=== PATIENT | male | born 1960 | race Caucasian/White ===

== ENCOUNTER 2024-06-30 09:44 | Outpatient (REF) | payer OTHER, SELFPAY ==
--- OUTSIDE RECORDS SUMMARY | 2024-06-30 11:03 | XMS_ITS | Clinical Summary ---
Author Organization [facility] Address [address] [place] [address] Care Team Providers Care Parts Identifier Name Role Phone Dodie Bryan MD Primary Care Provider [phone] Source Comments PLEASE NOTE, if this patient is a minor, it may be UNLAWFUL to discuss sensitive information that is contained in these records (such as FAMILY PLANNING, MENTAL HEALTH or SUBSTANCE ABUSE) with the minor patient's parent or other person without the patient's specific authorization.[facility] Allergies No known active allergies Medications alcohol swabsIndications: Type 2 diabetes mellitus without complication, with long-term current use of insulin ([facility]) Use daily for checking blood sugar 100 Each 5 01/18/20 16 Active blood sugar diagnostic stripsIndications :Type 2 diabetes mellitus without complication, without long-term current use of insulin ([facility]) once daily use once daily to check blood sugar. Presto brand. Diagnosis type 2 diabetes.E11.9 100 Each 5 12/18/19 19 Active glipiZIDE (GLUCOTROL) 5 mg tabletIndications :Type 2 diabetes mellitus without complication, without long-term current use of insulin ([facility]) Take 1 Tab by mouth 2 (two) times daily 180 Tab 1 12/18/19 19 Active peg 400-hypromellose- glycerin 1-0.2-0.2 % dropIndications:D ry eyes Place 1-2 Drops into both eyes 2 (two) times daily as needed (dry eye) 1 mL 5 04/30/19 20 Active atorvastatin (LIPITOR) 40 mg tabletIndications :Hypercholesterol emia Take 1 Tab by mouth once daily 90 Tab 1 04/30/19 20 Active lisinopriL 40 mg tabletIndications :Essential (primary) hypertension Take 1 Tab by mouth once daily 90 Tab 1 04/30/19 20 Active gabapentin (NEURONTIN) 300 mg capsuleIndication s:Cervical radiculitis Take 1 Cap by mouth 2 (two) times daily 60 Cap 4 04/30/19 20 Active hydroCHLOROthiazi de (MICROZIDE) 12.5 mg capsuleIndication s:Essential (primary) hypertension Take 1 Cap by mouth once daily 90 Cap 1 06/02/19 20 Active metFORMIN (GLUCOPHAGE) 1,000 mg tabletIndications :type 2 diabetes mellitus Take 1 Tab by mouth 2 (two) times daily with a meal Indications: type 2 diabetes mellitus 180 Tab 3 07/21/19 20 Active FLUoxetine (PROZAC) 40 mg capsuleIndication s:Generalized anxiety disorder,Recurren t major depressive disorder, in partial remission ([facility]) Take 2 Caps by mouth once daily (malawian instructions please) 60 Cap 2 08/04/19 20 Active dextroamphetamine -amphetamine (ADDERALL XR) 20 mg 24 hr capsuleIndication s:Attention deficit hyperactivity disorder (ADHD), combined type Please take 2 tablets by mouth twice a day. 120 Cap 08/04/19 20 Active Active Problems Patient Care Coordination No te Formatting of this note migh t be different from the original. [facility] Problem Noted Date Diagnosed Date Swelling of both ankles 08/04/2019 Assessment & Plan (08/04/2019 2:19 PM EDT): Presenting with b/l swelling of ankles, no red flags, no pain. Etiology unclear, reassured Jamey and reviewed warning signs to return to care, offered in-person assessment but since they are improved at the moment he prefers to call back and schedule if they worsen again. Follow up in October for routine DM visit. Multiple lung nodules on CT 12/18/2018 Overview (08/04/2019): 06/2017: Lung-RADS Category: 2 S (Benign appearance or behavior) The lung nodules described above have a very low likelihood of becoming a clinically active cancer, due to their size or lack of growth. The probability of malignancy is less than 1%. 3.8 cm round hypodense lesion at the superior pole the right kidney which is incompletely characterized. Renal ultrasound is recommended for further evaluation. Done, simple cyst. Coronary artery calcifications. RECOMMENDATION: *Nodule follow up with low dose Lung Screening CT in 12 months is recommended. *Renal ultrasound. Assessment & Plan (08/04/2019 2:20 PM EDT): CT order had been placed by Jud Hunter in February but not completed. Reordered today. Colon cancer screening 12/05/2018 Overview (12/05/2018): 11/20/18: FIT submitted by pt but inadequate sample, see TE (tel encounter) 12/05/18 RN team to reach out the the pt to redo the test and come in for instructions. 09/2017: FIT neg Assessment & Plan (07/13/2019 2:31 PM EDT): Pt due for colon cancer screening; Prefers Fit over colonoscopy Cervical radiculitis 08/31/2018 Overview (12/05/2018): 12/05/18: refilled Gabapentin 08/19/18: R shoulder has bothered him for years. Gabapentin helped in past. Today says: able to raise both arms, put R arm behind back. But right upper back/chest when rotates head to right. Can feel tingling, numbness down R arm. Trying not to use his R arm. On exam, has + spurling on Right Printed & reviewed [facility] Info & stretches for cervical radiculopathy, rx'd gabapentin. Consider PT in future if Pt agrees, or spine ortho consult Assessment & Plan (07/13/2019 2:24 PM EDT): Requesting refill of gabapentin for cervical radiculitis; Will provide rx [place] cardiac risk >20% in next 10 years Overview (12/08/2017): 11/27/17: Extensive discussion on The 10-year ASCVD risk score (Memo JOHNSON Jr., et al., 2013) is: 24.5% and ways to reduce risk, incl: smoking cessation, incr anti-hypertensive med dose, atorva incr, weight med risks & benefits potentially. Not ready to quit smoking yet. > pt agrees to add hctz 12.5mg daily. F/u 1-2 weeks for rpt BP, BMP Renal cyst, right 08/12/2017 Overview (05/15/2018): 06/04/17 CT: Incidentally found 3.8 cm round hypodense lesion at the superior pole the right kidney which is incompletely characterized. Renal ultrasound is recommended. - ordered 05/2018: kidney ultrasound showed a simple renal cyst. No further follow-up is needed - these are very common. They very rarely cause problems like pain or infection. Routine health maintenance 03/03/2017 Overview (03/18/2018): Annual CPex: Colon Cancer Screening: prefers FIT, declines c-scope. Ordered 09/10/17 after pt put if off for a long time. Eye exam: 12/26/16 no diabetic retinopathy or CSME OU - f/u 1 year. Dentist: Sees an outside dentist. Last visit 2 year ago. Has all prosthetic teeth. STD screening: Unknown. Same partner x20 years (his ex-), they are but still in contact, he does not think she has other partners, she wants to be back with him. Lung cancer screening due to smokin06/04/17: CT Lung cancer screening: *Nodule follow up with low dose Lung Screening CT in 12 months is recommended. (less than 1% chance malignant) Cigarette nicotine dependence without complicati on 11/12/2016 Overview (06/29/2018): 10/31/16: Smoking: still 10 cigs a day. > declines smoking cessation counseling program, nicotine replacement. > smoking for 35 years, 1 ppd until now half ppd The 10-year ASCVD risk score (Memo DC Jr., et al., 2013) is: 26.3% > if stops smoking, 17.8%! 06/04/17: CT Lung cancer screening: *Nodule follow up with low dose Lung Screening CT in 12 months is recommended. (less than 1% chance malignant) 11/27/17, 03/18/18: Not ready to quit smoking yet, in future consider quitworks/nicotine inhaler 06/17/18: Due for CT lung cancer screening - rolls his own cigs, smokes about 15 a day? - is interested in trying gum. Encouraged him to use patch too. Discussed switch to vape, QUITworks counseling, nicotine inhaler. - knows of support groups OCD (obsessive compulsive disorder) 02/08/2016 Generalized anxiety disorder 07/19/2015 Major depressive disorder, r ecurrent, in full remission ([facility] V[facility]) 07/12/2015 Overview (04/30/2019): 04/30/19 Depression and ADHD Taking prozac 60mg and adderall XR 20mg daily Following with June and Matthieu in @ [facility] Assessment & Plan (07/13/2019 2:29 PM EDT): Psychological condition is stable with prozac 60 mg and with . Plan: Continue current treatment regimen. Psychological condition will be reassessed at the next regular appointment. Attention-deficit hyperactivity disorder 014 Overview (09/15/2017): 09/10/17: Pt attributes his mild tachycardia at OVs to taking his adderall just before coming to appts Assessment & Plan (12/08/2018 6:29 AM EDT): In d/w psychiatry, he may go to higher dose of Adderrall 80mg po qd ER once BP is well-controlled Frequency of micturition 05/29/2010 Overview (03/03/2017): In chart since 05/29/10. 02/20/17: Says does not drink much water because prostate problems. Does not remember if tamsulosin helped. Says had LUIS EDUARDO. But this clinician unable to find LUIS EDUARDO in chart. Per chart: 04/13/15: freq urination declines prostate exam rx tamsulosin Type 2 diabetes mellitus without complications 1 04/17/2008 Overview (06/29/2018): - Med regimen: metformin 1g BID, glipizide 5g bid 06/17/18: Check A1c Had an episode of low BG in 40s, symptomatic. Pt declines decreasing his glipizide at this time - encouraged him to take only HALF a tab BID. Has a pill cutter at home. - Last A1c: 6's - Fasting BGs: - S/sx hypoglycemia or hyperglycemia: - Urine microalb/cr: 7 on 10/31/16 - Monofilament foot sensation: 5/5 02/20/17 - Eye exam: 12/26/16 no diabetic retinopathy or CSME OU - f/u 1 year. - Seen by customer solutions specialist: - ACEI or ARB: lisinopril 40 - mod-high Statin: atorva 40 Assessment & Plan (07/13/2019 2:28 PM EDT): Diabetes is stable w metformin 1g BID and glipizide 5 mg BID. Plan: Pt not due for HgbA1c til July. Will order yearly DM labs including Microalbumin/Cr ratio, Cr, and lipid panel Diabetes will be reassessed in 1 month. Assessment & Plan (06/24/2019 6:41 PM EDT): Diabetes is well managed at this time. Plan: Continue current treatment regimen. Diabetes will be reassessed 2 months, beginning of August when due for next a1c. May be able to do in person but likely will not . Hypercholesterolemia 11/11/2007 Assessment & Plan (07/13/2019 2:30 PM EDT): Lipid abnormalities are stable on atorvastatin 40 mg and will continue given elevated ASCVD risk The 10-year ASCVD risk score (Aurora ELIZABETH Serrano., et al., 2013) is: 28.3% Plan: Pharmacotherapy as ordered and encourage smoking cessation. Lipids will be reassessed in 3 months. Essential (primary) hypertension 04/03/2006 Overview (04/30/2019): Takes lisinopril 40mg 11/27/17: added hctz 12.5 mg to meet goal BP < 130/80 (pt with DM, The 10-year ASCVD risk score (Memo JOHNSON Jr., et al., 2013) is: 24.5% ) > check BP, BMP in 1-2 weeks 03/18/18: BP well controlled. Pt would like home BP cuff. To send rx. 08/19/18: Continue meds. Encouraged smoking cessation. 04/30/19 well controlled, cont Assessment & Plan (06/24/2019 12:21 PM EDT): Hypertension is well managed at this time. Plan: Continue current treatment regimen, Dietary sodium restriction, Regular aerobic exercise, Stop smoking and though he declines smoking cessation at this time Blood pressure will be reassessed at the next regular appointment. Assessment & Plan (07/13/2019 2:24 PM EDT): Hypertension is well controlled on lisinopril 40 mg and HCTZ 12.5 mg Plan: Continue current treatment regimen and Regular aerobic exercise; encourage smoking cessation; Lipid panel check Blood pressure will be reassessed at the next regular appointment. Assessment & Plan (11/11/2018 4:18 PM EDT): BP still above goal of <130/80 in setting DMII, enc tob cessation Med adherence: Appear to not been taking HCTZ and he is unsure he has taken it at all since rx'd over the past year He confirms taking lisinopril 40mg po qd I've printed rx for HCTZ 12.5mg po qd and given it to the patient. Lab Results Component Value Date NA 140 02/05/2018 K 5.2 02/05/2018 CALCIUM 9.4 02/05/2018 BUN 21 02/05/2018 BUNCREAT NOT APPLICABLE 02/05/2018 CREATININE 0.75 02/05/2018 GLUCOSE 72 08/19/2018 EGFR 100 02/05/2018 EGFRAFAM 116 02/05/2018 Resolved Problems Problem Noted Date Diagnosed Date Resolved Date Dermatofibroma 09/15/2017 06/24/2019 Overview (03/18/2018): 09/10/17: Ulnar side of L wrist: 0.7mm diameter dermatofibroma. Pt aware does not need to remove lesion, will think about it. Reviewed procedure for ellipitical excision Reviewed potential risks and benefits. can be punch biopsy Persistent cough for 3 weeks or longer 08/12/2017 09/10/2017 Overview (09/15/2017): 08/05/17: for 2 months (started after recent lung CT for cancer screening in smoker) Throat clearing during OV Cobblestoning in nose - etiology: Allergies? Copd? Lisinopril? - Plan: > check cbc diff, quant gold (pt not at increased risk: from MD) > trial flonase, f/u 2 weeks 09/10/17: Cough resolved. Pt not sure if flonase was what helped. Screening examination for venereal disease 11/12/2016 12/18/2018 Overview (11/12/2016): 10/31/16: To check in [facility] for prior labs (e.g. HCV, HIV) > pt states he had this in past, says has no risk factors in past 10 years. > last sexual activity: same partner x40 years, last time with that partner 2-3 months ago. No penile discharge, or rash. No hx IVDU, blood transfusions, tattoos. Had hernia surgery. ADD (attention deficit disorder) 02/08/2016 11/12/2016 Restless legs syndrome 01/18/201606/23 Attention-deficit hyperactiv ity disorder, predominantly hyperactive type 08/09/2015 6 Depression, major, recurrent, moderate 07/19/2015 11/12/2016 Overview (09/21/2015): Sees Dr. Cali Medley 04/13/2015 06/24/2019 Personal history of problems 01/06/2014 09/21/2015 Mood disorder ([facility] V[facility]) 07/23/2013 09/21/2015 Dizziness and giddiness 08/20/201109/02 Tobacco use 01/03/2011 11/12/2016 Anxiety disorder 02/14/2009 09/21/2015 Immunizations Immunization Administration Dates Next Due Flu, Preservative Free 12/11/2012 Flu, Recombinant, 18y+, Flublok 12/17/2018,03/18 INFLUENZA, SEASONAL, INJECTABLE 12/25/2016,01/02,11/03/2015 INFLUENZA, SEASONAL, INJECTA BLE, PRESERVATIVE FREE 11/09/2015 INFLUENZA, UNSPECIFIED 12/22/2014,2013,12/02/2012,11/11,01/02/2011,12/01/2009 PNEUMOCOCCAL POLYSACCHARIDE PPV23 09/11/2010 TDAP 09/11/2010 Family History Medical History Relation Name Comments Dementia Mother Diabetes Mother Cancer Neg Heart Problems Neg Relation Name Status Comments Mother Social History Tobacco Use Types Packs/Day Years Used Date Smoking Tobacco: Every Day Cigarettes 0.8 45 Smokeless Tobacco: Current Tobacco Cessation:Counseling Given: Yes Alcohol Use Standard Drinks/Week Comments No 0 (1 standard drink = 0.6 oz pur e alcohol) Social Connections Answer Date Recorded Connectedness 0 11/09/2023 Financial Resource Strain Answer Date R ecorded Financial Resource Strain 0 2018 Stress Answer Date Recorded Stress 0 10/22/2018 Physical Activity Answer Date Recorded Physical Activity 0 10/22/2018 Food Insecurity Answer Date Recorded Food 0 12/10/2018 Transportation Needs Answer Date Record ed Transportation 0 12/10/2018 Housing Stability Answer Date Recorded Housing 0 12/10/2018 Safety and Environment Answer Date Jose rded Safety 0 10/22/2018 Utilities Answer Date Recorded Utilities 0 12/10/2018 Employment Answer Date Recorded Stress 0 12/10/2018 Sex and Gender Information Value Date Recorded Sex Assigned at Not on file Legal Sex Male 11:26 PM PDT Gender Identity Male 02/14/2019 7:17 AM PST Sexual Orientation Choose not to disclose 2018 11:00 AM PDT Last Filed Vital Signs Vital Sign Reading Time Taken Comments Blood Pressure 122/70 04/30/2019 2:17 PM EST Pulse 100 04/30/2019 2:17 PM EST Temperature 36.7 ??C (98 ??F) 04/30/2019 2:17 PM EST Respiratory Rate 20 10/31/2016 2:48 PM EDT Oxygen Saturation 100% 04/30/2019 2:17 PM EST Inhaled Oxygen Concentration - - Weight 78 kg (172 lb) 04/30/2019 2:17 PM EST Height 176.5 cm (5' 9.49 ) 11/27/2017 4:19 PM ED T Body Mass Index 25.04 11/27/2017 4:19 PM EDT Plan of Treatment Not on file Insurance [facility] Member Subscriber Plan / Payer (Ef fective 2015-Present) Name:Jamey Macedo Relation to Subscriber:Self Name:Jamey Macedo Payer ID:[id number] Group ID:Not on file Type:Medicare Address: [address] [place] [address] [id number] Care Teams Parts Identifier Relationship Specialty Start Date End Date Dodie Bryan MD PCP - General 02/09/19
--- OUTSIDE RECORDS SUMMARY | 2024-06-30 11:03 | XMS_ITS | Data Portability ---
Author Organization [place] - [employer] [facility], [place] - Home/Virtual/Phone Address [address] [place] [address] [phone] [place] [address] Assessment Encounter Date Assessment Date Assessment LastModified by Organization Details LastModified Time 05/24/2023 05/24/2023 Goals and Actions from this Visit My Goals and To Do List: What [facility] Will Do: Medication(s) Started or Changed today: Medication(s) STOPPED today: Caregiver Instructions: [email or web address] Not available 05/24/2023 13:25:56 Plan of Treatment Reminders Order Date Submit Date Provider Last Modified By Organization Details Last Modified Time Details Appointments None record ed. Lab None record ed. Referral None record ed. Procedures None record ed. Surgeries None record ed. Imaging None record ed. Medication Orders None record ed. Patient TargetsNo targets recorded. Patient Instructions Encounter Date Encounter Id Patient Instructions Last Modified By Organization Details Last Modified Time 05/24/2023 [id number] Care Plan: Members primary concern: My primary concern: Focus to keep member in community: Strengths: Barriers: Team point of contact: Tasked , RN, to follow up within 2 weeks to create/review Care Plan with member Member was told that for true emergencies - they should call 911 without hesitation. They were also informed that [facility] has a provider rehabilitation construction specialist for any urgent medical issues or for advice. Member was given [facility]'s access number - . [email or web address] Not available 05/24/2023 13:25:57 Enter the [facility] t CPT codes on the billing tab: Provider Visit Codes - In-person and Video: {{41475 = New, MDM Straightforward and/or 15-29 minutes 81850 = New, MDM Low and/or 30-44 minutes 22686 = New, MDM Moderate and/or 45-59 minutes 49636 = New, MDM High and/or 60-74 minutes 84442 = ALL RN visits 04943 = Est, MDM Straightforward and/or 10 - 19 minutes 44454 = Est, MDM Low and/or 20 - 29 minutes 94665 = Est, MDM Moderate and/or 30 - 39 minutes* 33068 = Est, MDM High and/or 40+ minutes Non-billabl e: 98768}} PCP Annual Wellness Visit Codes - In-Person and Video: (req Z00.xxx Dx) {{MediCARE, Initial = G0438 MediCARE, Subsequent = G0439 MedicAID, New, 19-39 yrs = 26850 MedicAID, New, 40-64 yrs = 27292 MedicAID, New, 65+ yrs = 41780 MedicAID, Established, 19-39 yrs = 52064 MedicAID, Established, 40-64 yrs = 32064 MedicAID, Established, 65+ yrs = 17353}} Video Modifier: {{[place], [place], [place] = 95 if member is seen virtually while in-home [place], [place], [place], [place] = GT if member is seen virtually while in-home [place] = no modifier}} Nurse Visit: 03440 Provider Phone CPT Codes [these require phone call length documented as well, see HPI]: {{38431 for audio-only calls lasting 5 - 10 minutes 76450 for audio-only calls lasting 11 - 20 minutes 44341 for audio-only calls lasting 21+ minutes Non-billabl e, e.g. if seen within last 7 days: 40416}} Phone Modifier: {{[place], [place], [place], [place], [place], [place], [place] = 93 [place] = no modifier}} Smoking Cessation Counseling: {{83431 - Smoking and tobacco use cessation counseling visit; intermediate, greater than 3 minutes up to 10 minutes* 85644 - Smoking and tobacco use cessation counseling visit; intensive, greater than 10 minutes Not performed Not applicable}} Brief Behavioral Assessment: {{49311 for PHQ, RENU, AUDIT, DAST, ADHD, etc Not applicable}} Medication Reconciliation {{Performed, no concerns found Performed, concerns found - referral sent to: Performed, concerns found and addressed during this visit Not able to be performed}} {{}} Medication list updated in this EHR. {{1111f - medication reconciliation within 30 days post-discharge 1159 f - blast furnace tender of medication list in the medical record, no recent discharge 1160f - Provider review of medication list in the medical record, no recent discharge}} Dx: Z79.899 - Encounter for medication review Advance Care Planning Discussion: {{08367 - Advance care planning including the explanation and discussion of advance directives such as standard forms, by the physician or other qualified healthcare professional; first 30 minutes, [id number] with the patient, family member(s), and/or surrogate For each additional 30 minutes: 34425 + 67418 Not performed Not applicable}} [email or web address] Not available 05/29/2023 16:24:07 Reason for Referral None Reported. Problems Name Problem SNOMED Code Status Onset Date Resolution Date Notes Provider Name and Address Organization Details Recorded Time Type 2 diabetes mellitus without complicat ion 900379809 Active 2023 - Managed with Metformin 1000 mg, 1 pill in am and 1 pill at night time and glipizide 5 mg in am - Checks BG in am, BG range from: 170-200 am, previous in am blood glucose 110-120's - 07/18/2021 A1C 7.3 [email or web address] 4 13:55:31 Pure hyperchol esterolem ia 204925793 Active 2023 [email or web address] 4 13:55:47 Chronic alcoholis m in remission 384448686 Active 2023 [email or web address] 4 13:56:01 Opioid dependenc e in remission 954138835 Active 2023 [email or web address] 4 13:56:12 Recurrent major depressio n in full remission 47217625 Active 2023 [email or web address] 4 13:56:31 Generaliz ed anxiety disorder 09699445 Active 2023 [email or web address] 4 13:56:42 Attention deficit hyperacti vity disorder, combined type 96635418 Active 2023 [facility] 4 13:56:58 Bilateral age-relat ed nuclear cataracts 996921275766 100 Active 2023 [facility] 4 13:57:13 Presbyopi a 73048294 Active 2023 [facility] 4 13:57:26 Essential hypertens ion 44158784 Active 2023 [facility] 4 13:57:40 Atheroscl erosis of coronary artery without angina pectoris 485460995381 103 Active 2023 [facility] 4 13:57:59 Cervical radiculit is 22951346 Active 2023 [facility] 4 13:58:11 Problem Notes None recorded. Medical Equipment None Reported. Medications Name Sig Start Date Stop Date Status Note LastModified by Organization Details LastModified Time fluoxetine 40 mg capsule TAKE 2 CAPSULES BY MOUTH ONE TIME A DAY active Not Available Not Available No t Available atorvastati n 40 mg tablet TAKE 1 TABLET BY MOUTH EVERYDAY AT BEDTIME active Not Available Not Available No t Available gabapentin 600 mg tablet TAKE 1 TABLET BY MOUTH TWICE DAILY FOR NERVE PAIN active Not Available Not Available No t Available Nicotrol 10 mg inhalation cartridge INHALE 1 PUFF BY MOUTH DIRECTED NEEDED FOR SMOKING CESSATION 05/23 completed Not Available Not Available Not Available dextroamphe tamine-amph etamine ER 20 mg 24hr capsule,ext end release TAKE 2 CAPSULES BY MOUTH TWICE A DAY (8AM AND 2PM) active Not Available Not Available No t Available metformin 1,000 mg tablet TAKE 1 TABLET BY MOUTH TWICE DAILY WITH MEALS FOR DIABETES active Not Available Not Available No t Available hydrochloro thiazide 12.5 mg capsule TAKE 1 CAPSULE BY MOUTH DAILY active Not Available Not Available No t Available lisinopril 40 mg tablet TAKE 1 TABLET BY MOUTH ONCE DAILY FOR HIGH BLOOD PRESSURE. active Not Available Not Available No t Available glipizide 5 mg tablet TAKE 1 TABLET BY MOUTH EVERY DAY BEFORE BREAKFAST active Not Available Not Available No t Available Alcohol Prep Pads USE DIRECTED DAILY active Not Available Not Available No t Available Vyvanse 50 mg capsule TAKE 1 CAPSULE BY MOUTH EVERY MORNING 05/23 completed Not Available Not Available Not Available Vyvanse 40 mg capsule TAKE 1 CAPSULE BY MOUTH EVERY MORNING 05/23 completed Not Available Not Available Not Available diclofenac 1 % topical gel APPLY 2 GRAMS TO THE AFFECTED AREA THREE TIMES DAILY NEEDED FOR PAIN. active Not Available Not Available No t Available OneTouch Verio test strips USE DIRECTED DAILY active Not Available Not Available No t Available Jardiance 10 mg tablet TAKE 1 TABLET BY MOUTH EVERY DAY FOR DIABETES 05/08 completed Not Available Not Available Not Available Jardiance 25 mg tablet TAKE 1 TABLET BY MOUTH EVERY DAY FOR DIABETES 05/23 completed Not Available Not Available Not Available naloxone 4 mg/actuatio n nasal spray PLEASE SEE ATTACHED FOR DETAILED DIRECTION S active Not Available Not Available No t Available OneTouch Verio Flex Meter Use as directed to test glucose once daily and as needed 2023 active Not Available Not Available Not Avai lable OneTouch Delica Plus Lancet 33 gauge USE DIRECTED TO TEST GLUCOSE ONCE A DAY AND NEEDED active Not Available Not Available No t Available OneTouch Delica Plus Lancet 30 gauge active Not Available Not Available Not Available Vitals Date Recorded Body weight Body mass index (BMI) Body height Provider Name and Address Organization Details Last Updated DateTime 05/24/2023 80608.74 g 25.8 kg/m2 170.18 cm Juju Payton NP [address], [address], [facility] [email or web address] [facility] 05/24/2023 13:47:54 Social History None recorded. Functional Status None recorded. Mental Status None recorded. Family History Nothing Reported. Medical History No medical history recorded. Past Encounters Encounter ID Performer Location Encounter Start Date Encounter Closed Date Diagnosis/Indication Diagnosis SNOMED-CT Code Diagnosis ICD10 Code Diagnosis Note [id number] Juju Payton NP [place] - Home/[facility] ual/Phone [address] [facility], [address] [place] [address] 05/24/2023 13:24:58 05/29/2023 16:24:35 Opioid dependence in remission 781364687 F11.21 - previous heroin use now 18 years in remission- Member reports attending multiple support meetings during the week- Declines additional resources at this time Multiple n odules of lung 810430093 R91.8 - member underwent screening lung CT 12/21/22 showing multiple lung nodules stable since last assessment in 2018:- Three 2 mm, solid nodule in RUL. Two 3 mm nodules in RUL- 2.5 mm, solid nodule, DARIUSZ, Three 2 mm nodule DARIUSZ, 3 mm solid nodule LLL- Stable station 4R enlarged lymph node, with normal appearing fatty hilum, measuring 10 mm- Continue with yearly monitoring Chronic pain 72534912 G8 9.29 - Chronic left shoulder pain- Referred for left shoulder x-ray- Using Gabapentin 600 mg BID for pain management as well as Diclofenac Gel Essential hypertension 67389801 I10 - Managed with HCTZ 12.5 mg and Lisinopril 40 mg daily- Unable to check blood pressure due to virtual nature of visit but member believes that he is normotensi ve at most visits- Requesting blood pressure cuff which was ordered for his use Nicotine dependence 5629 4008 F17.200 - Currently smokes 15 cigarettes a day- Was previously prescribed a nicotrol inhaler but felt that it was more addictive- offered and declined nicotine patches or lozenges- At this time declined additional resources Chronic al coholism in remission 446554596 F10.21 - Reports that he has been sober for 20 years- Member reports attending multiple support meetings during the week- Declines additional resources at this time Hyperglyce dale due to type 2 diabetes mellitus 6955353880 92083 E11.65 - Last available A1C from 2021 7.3 but believes it was around 6 when last checked- Currently managing Glipizide 5 mg and Metformin 1000 mg two tabs daily- Checks blood sugars daily usually 115-129 in the mornings- Previously history of of CKD stage 3 but can be confirmed at this visit. Will request most recent lab work from PCP Hyperlipid emia due to type 2 diabetes mellitus 4109458376 52939 E78.5 - No recent lab work available for review- Managing with atorvastat in 40 mg daily Attention deficit hyperactivity disorder, predominantly inattentive type 18062586 F90.0 - Managing with dextroamph ertamine- amphetamin e ER 20 mg twice a day with good effect- Followed by psychiatry monthly for prescripti ons- Previously trailed Vyvanse with poor effect Moderate r ecurrent major depression 82363278 F33.1 - Managed with fluoxetine 40 mg 2 capsules daily as prescribed by PCP- Was seeing a therapist weekly but decided to stop services as he felt stable- Has contact as needed and knows available resources through [facility] Health Concerns Section Related Observation LastModified by Organization Detai ls LastModified Time None Recorded Concern Status LastModified by Organization Details LastModified Time None Recorded Advance Directives Directive None Recorded Payers Encounter Date Sequence Insurance Name Policy Number Policy Krishna Covered Member ID Krishna Member ID Guarantor Name 05/24/2023 1 [facility] [employer] - TOGETHER (MEDICAID HMO) [id number] Jamey Macedo [id number] 1 [id number] Jamey Macedo Notes Date Note Type Note Provider Name and Address Organization Details Recorded Time 05/24/2023 text/html Clinical Visit - Initial / AnnualMember was seen {{via video. This visit was provided through video telemedicine. Patient was informed about tele-health treatment methods and limitations and consented to proceed with this visit modality. All questions regarding this tele-health visit modality were answered prior to initiation of the clinical portion of this visit.* in the hub in their home via audio-only telephone, call times noted:}}For audio-only encounters: Time call started: {{}} Time call ended: {{}} Additional visit participants: Olinda Bonilla Was an asl interpreter used: {{No Yes, ID#:*}} Clinical EngagementWhat is your PCP's name and when was the last time you saw them?Hu Almonte - 6 months ago Do you have any other specialists you see? If so, who are they, how often and why do you see them? (including mental health) (Add to Care Team in [place] if not already done)- Tiffanie Ryder - once weekly- Therapist but not currently seeing him per own decisionIs there anything specific that you would like to speak to our provider about today? Provider:Preventativ e Care Review: Document all results under History tab, with records uploaded if possible. Colon Cancer Screening? (45-75)DueSTI Screening? (HIV, Hep B/C; GC/CT - ){{ N/A}}Lung Cancer Screening? (50-80 with 20 pack/yr hx for current and former smokers)12/21/22Oste oporosis Screening? (F, 65+){{ N/A}}AAA Screening? (M, 65-75, ever smoked){{ N/A}}Advan peggy Care Planning?{{ N/A}} Immunization Review:Flu vaccine? (Annual)neumoco ccal vaccine? (>65)x 2Shingles vaccine (>50)DueLast TDAP?{{ N/A}}COVID vaccine?DueHPV vaccine?{{ N/A}}RSV vaccine (60+, shared decision making){{ N/A Decide d against desires this vaccine}} Reviewed History Section, including problems, Family Hx, Social Hx.Hearing Review (vision review) Medication Reconciliation Completed: {{Yes* No, due to}}Complete ILEANA Payton NP [address] [place] [address], [phone], [facility] [employer] 05/29/2023 16:24:23
--- OUTSIDE RECORDS SUMMARY | 2024-06-30 11:04 | XMS_ITS | Clinical Summary ---
Author Organization [address] [facility] Address [address] [place] [address] Phone Care Team Providers Care Line Controller Name Role Phone Physician, Pcp Unknown Primary Care Provider Lovely vailable Allergies No known active allergies Medications atorvastatin (LIPITOR) 40 mg tablet Take 1 tablet (40 mg total) by mouth at bedtime. Active amphetamine-de xtroamphetamin e XR (ADDERALL XR) 20 mg 24 hr capsule TAKE 2 CAPSULES BY MOUTH TWICE A DAY (8AM AND 2PM) Active diclofenac (VOLTAREN) 1 % topical gel APPLY 2 GRAMS TO THE AFFECTED AREA THREE TIMES DAILY NEEDED FOR PAIN. Active FLUoxetine (PROzac) 40 mg capsule Take 2 capsules (80 mg total) by mouth 1 (one) time each day. Active gabapentin (NEURONTIN) 600 mg tablet Take by mouth. A ctive glipiZIDE (GLUCOTROL) 5 mg tablet Take 1 tablet (5 mg total) by mouth 1 (one) time each day. Active hydroCHLOROthi azide (MICROZIDE) 12.5 mg capsule Take 1 capsule (12.5 mg total) by mouth 1 (one) time each day. Active lisinopril (PRINIVIL,ZEST RIL) 40 mg tablet Take 1 tablet (40 mg total) by mouth 1 (one) time each day. Active metFORMIN (GLUCOPHAGE) 1,000 mg tablet TAKE 1 TABLET BY MOUTH TWICE DAILY WITH MEALS FOR DIABETES Active Alcohol Prep Pads pads, medicated See administration instructions. 4 Active lancets (OneTouch Delica Plus Lancet) 30 gauge 4 Active naloxone (NARCAN) 4 mg/0.1 mL nasal spray PLEASE SEE ATTACHED FOR DETAILED DIRECTIONS Active naproxen (NAPROSYN) 500 mg tablet TAKE 1 TABLET BY MOUTH TWICE DAILY NEEDED FOR PAIN. TAKE WITH FOOD - DO NOT COMBINE WITH OTHER NSAIDS LIKE IBUPROFEN Active Active Problems Problem Noted Date Diagnosed Date Closed fracture of left distal radius and ulna 0 11/28/2023 Age-related nuclear cataract of both eyes 2023 Atherosclerosis of coronary artery without angin a pectoris 05/10/2023 Attention deficit hyperactivity disorder, combin ed type 05/10/2023 Cervical radiculitis 05/10/2023 Essential hypertension 05/10/2023 Generalized anxiety disorder 05/10/2023 Opioid dependence in remission ([facility] V24, [facility] V28) 05/10/2023 Presbyopia 05/10/2023 Pure hypercholesterolemia 05/10/2023 Recurrent major depression in full remission ([facility] V24) 05/10/2023 Type 2 diabetes mellitus wit hout complication ([facility] [place] V24, [facility] V28) 05/10/2023 Overview (01/02/2024): - Managed with Metformin 1000 mg, 1 pill in am and 1 pill at night time and glipizide 5 mg in am - Checks BG in am, BG range from: 170-200 am, previous in am blood glucose 110-120's - 07/18/2021 A1C 7.3 Chronic alcoholism in remission ([facility] V24, [facility] V28) 05/10/2023 Type 2 diabetes mellitus wit hout complication ([facility] V24, [facility] V28) 05/10/2023 Overview (01/17/2024): - Managed with Metformin 1000 mg, 1 pill in am and 1 pill at night time and glipizide 5 mg in am - Checks BG in am, BG range from: 170-200 am, previous in am blood glucose 110-120's - 07/18/2021 A1C 7.3 Encounters Date Type Department Care Team Description 05/26/2024 Lab Requisition [facility] - Main Lab [address] [facility] [place] [address] Stefanie Obrien MD Opioid dependence, in remission ([facility] [place] V24, [facility] V28); Pure hypercholesterolemia, unspecified; Essential (primary) hypertension; Type 2 diabetes mellitus with hyperglycemia ([facility] V24, [facility] V28); Benign prostatic hyperplasia without lower urinary tract symptoms from Last 3 Months Social History Tobacco Use Types Packs/Day Years Used Date Smoking Tobacco: Never Assessed Sex and Gender Information Value Date Recorded Sex Assigned at Not on file Legal Sex Male 11:41 AM EDT Gender Identity Not on file Sexual Orientation Not on file Last Filed Vital Signs Vital Sign Reading Time Taken Comments Blood Pressure - - Pulse - - Temperature - - Respiratory Rate - - Oxygen Saturation - - Inhaled Oxygen Concentration - - Weight 74.4 kg (164 lb) 11/28/2023 2:42 PM EDT Height 167.6 cm (5' 6 ) 11/28/2023 2:42 PM EDT Body Mass Index 26.47 11/28/2023 2:42 PM EDT Plan of Treatment Health Maintenance Due Date Last Done Comments Diabetes: Annual GFR (Glomer ular Filtration Rate) 1958 Diabetes: Annual Foot Exam 1968 Diabetes: Annual Retina Eye Exam 1968 DTaP,Tdap,and Td Vaccines (1 - Tdap) 1977 Hepatitis A Vaccines (1 of 2 - Risk 2-dose series) 1977 Pneumococcal Vaccine: 50+ Ye ars (1 of 2 - PCV) 1977 Zoster Vaccines (1 of 2) 2008 COVID-19 Vaccine (2023-2 5 season) 2023 Abdominal Aortic Aneurysm (A AA) Screen 12/15/2023 Cholesterol Screening (Lipid Panel) 12/15/2023 Colorectal Cancer Screening: Colonoscopy 12/15/2023 Depression Screening 12/15/2023 Diabetes: Annual Urine Albumin-Creatinine Ratio (uACR) 12/15/2023 Diabetes: Blood Sugar Contro l Test (HGBA1C) 12/15/2023 Falls Risk Assessment 12/15/2023 Hepatitis C Screening 12/15/2023 Hypertension/CHF/CAD Annual BMP Blood Test 12/15/2023 Medicare Annual Wellness Visit 12/15/2023 Social Influencers of Health Screening 12/15/2023 Influenza Vaccine (Season Ended) 2024 RSV Immunization Adult Patie nts (1 - 1-dose 75+ series) 2033 HIB Vaccines Aged Out No longer eligi ble based on patient's age to complete this topic HPV Vaccines Aged Out No longer eligi ble based on patient's age to complete this topic Hepatitis B Vaccines Aged Out No long er eligible based on patient's age to complete this topic IPV Vaccines Aged Out No longer eligi ble based on patient's age to complete this topic MMR Vaccines Aged Out No longer eligi ble based on patient's age to complete this topic Meningococcal ACWY Vaccine Aged Out N o longer eligible based on patient's age to complete this topic Meningococcal B Vaccine Aged Out No l onger eligible based on patient's age to complete this topic RSV Immunization Patients Un justine 20 months Aged Out No longer eligible b ased on patient's age to complete this topic Varicella Vaccines Aged Out No longer eligible based on patient's age to complete this topic Insurance [employer] [place] - [place] Care Teams Line Controller Relationship Specialty Start Date End Date Physician, Pcp Unknown PCP - General 01/10/24
--- OUTSIDE RECORDS SUMMARY | 2024-06-30 11:04 | XMS_ITS | Encounter Summary ---
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 Name Role Phone Physician, Pcp Unknown Primary Care Provider Lovely vailable Encounter Details Date Type Department Care Team (Late st Contact Info) Description 05/26/2024 Lab Requisition [facility] - Main Lab [address] [facility] [place] [address] Stefnaie Obrien MD [address] [place] [address] [id number] Opioid dependence, in remission (CMS/HCC V24, CMS/HCC V28); Pure hypercholesterolemia, unspecified; Essential (primary) hypertension; Type 2 diabetes mellitus with hyperglycemia (CMS/HCC V24, CMS/HCC V28); Benign prostatic hyperplasia without lower urinary tract symptoms Social History Tobacco Use Types Packs/Day Years Used Date Smoking Tobacco: Never Assessed Sex and Gender Information Value Date Recorded Sex Assigned at Not on file Legal Sex Male 11:41 AM EDT Gender Identity Not on file Sexual Orientation Not on file documented as of this encounter Plan of Treatment Scheduled Orders Name Type Priority Associated Diagnoses Orde r Schedule Hepatitis C antibody Lab Routine Opioid dependence, in remission Ordered: 05/26/2024 Comprehensive metabolic panel Lab Routine Pure hypercholesterolemia, unspecified Ordered: 05/26/2024 Lipid panel with reflex to direct LDL Lab Routine Pure hypercholesterolemia, unspecified Ordered: 05/26/2024 Microalbumin creatinine urine ratio Lab Routine Essential (primary) hypertension Ordered: 05/26/2024 Hemoglobin A1c Lab Routine Type 2 diabetes mellitus with hyperglycemia (CMS/HCC) Ordered: 05/26/2024 PSA total, free and complexed, diagnostic Lab Routine Benign prostatic hyperplasia without lower urinary tract symptoms Ordered: 05/26/2024 documented as of this encounter Visit Diagnoses Diagnosis Opioid dependence, in remission (CMS/HCC V24, [facility] V28) Pure hypercholesterolemia, unspecified Essential (primary) hypertension Unspecified essential hypertension Type 2 diabetes mellitus with hyperglycemia ([facility] V24, [facility] V28) Benign prostatic hyperplasia without lower urinary tract symptoms documented in this encounter Care Teams Dressed Poultry Grader Relationship Specialty Start Date End Date Physician, Pcp Unknown PCP - General 01/10/24 documented as of this encounter
[2024-06-30 11:11] LABS: Estimated Average Glucose 171 mg/dL; Hemoglobin A1C 202.8435 umol/L; Hemoglobin A1c % 7.6 % (<6.0); Total Hemoglobin (HGBA1C) 3403.0878 umol/L
[2024-06-30 11:34] LABS: Alanine Aminotransferase 23 U/L (0-40); Albumin Level 4.1 g/dL (3.5-5.0); Alkaline Phosphatase 62 U/L (39-117); Anion Gap 11 (12-20); Aspartate Amino Transferase 18 U/L (5-37); Bilirubin Total 0.5 mg/dL (0.0-1.0); Blood Urea Nitrogen 29 mg/dL (9-16); Calcium 9.1 mg/dL (8.4-10.2); Carbon Dioxide 27 mmol/L (22-29); Chloride 105 mmol/L (96-108); Cholesterol 153 mg/dL (<200); Estimated Glomerular Filt Rate > 60; Glucose Random 149 mg/dL (60-115); HDL Cholesterol 39 mg/dL (>40); LDL Cholesterol Calculated 91 mg/dL (<100); Sodium 138 mmol/L (135-145); Triglycerides 116 mg/dL (<150)
[2024-06-30 11:35] LABS: Creatinine Urine 202.67 mg/dL; Microalbum/Creatinine Ratio Ur 47.8 ug/mg cr (<30)
[2024-06-30 13:34] LABS: Reflex LDLD? No
[2024-07-01 08:22] LABS: ~HepC Num1 0.05 S/CO (0.00-0.79); ~Hepatitis C Antibody Nonreactive (Nonreactive)
[2024-07-01 11:18] LABS: Free Prostate Spec Ag 0.6 ng/mL; Percent Free Prostate Spec Ag 24 % (calc) (>25); Prostate Specific Ag Total 2.5 ng/mL (< OR = 4.0)
== END 2024-06-30 09:45 | disposition home or self-care (01) ==
LOC: HO.LAB 09:44
PROVIDERS: PCP Internal Medicine; Visit Provider Internal Medicine
DX: E11.65 Type 2 diabetes mellitus with hyperglycemia (principal); E78.00 Pure hypercholesterolemia, unspecified; F11.21 Opioid dependence, in remission; F32.2 Major depressive disorder, single episode, severe without psychotic features; F90.0 Attention-deficit hyperactivity disorder, predominantly inattentive type; I10 Essential (primary) hypertension; N40.0 Benign prostatic hyperplasia without lower urinary tract symptoms
CPT/HCPCS: 36415; 80053; 80061; 82043; 82570; 83036; 84154; 86803